=== PATIENT | female | born 1955 | race Caucasian/White ===

== ENCOUNTER 2020-11-11 09:28 | Outpatient (CLI) | payer MEDICARE, SELFPAY ==
[2020-11-11 10:32] LABS: Alanine Aminotransferase 32 U/L (14-59); Albumin Level 3.9 g/dL (3.4-5.0); Alkaline Phosphatase 63 U/L (46-116); Anion Gap 10 mmol/L (8-16); Aspartate Amino Transferase 21 U/L (15-37); Bilirubin,Total 1.1 mg/dL (0.00-1.00); Blood Urea Nitrogen 14 mg/dL (7-18); Calcium 9.3 mg/dL (8.5-10.1); Carbon Dioxide 28 mmol/L (21-32); Chloride 102 mmol/L (98-108); Cholesterol 218 mg/dL (0-200); Estimated Glomerular Filt Rate > 60; Glucose 104 mg/dL (70-99); HDL Direct 95 mg/dL (40-60); LDL Cholesterol Calculated 95 mg/dL (<130); Osmolality Calculated 290 mOsm/kg (285-295); Potassium 3.8 mmol/L (3.5-5.1); Sodium 140 mmol/L (136-145); Triglycerides 138 mg/dL (0-150)
== END 2020-11-11 09:29 | disposition home or self-care (01) ==
LOC: CHSLAB 09:31
PROVIDERS: PCP Family Medicine; Visit Provider Internal Medicine Cardiovascular Disease
DX: E78.5 Hyperlipidemia, unspecified (principal)
CPT/HCPCS: 36415; 80053; 80061

== ENCOUNTER 2021-06-15 09:08 | Outpatient (CLI) | payer MEDICARE, SELFPAY ==
[2021-06-15 10:20] LABS: Alanine Aminotransferase 24 U/L (14-59); Albumin Level 3.9 g/dL (3.4-5.0); Alkaline Phosphatase 64 U/L (46-116); Anion Gap 11 mmol/L (8-16); Aspartate Amino Transferase 17 U/L (15-37); Bilirubin,Total 0.9 mg/dL (0.00-1.00); Blood Urea Nitrogen 11 mg/dL (7-18); Calcium 9.5 mg/dL (8.5-10.1); Carbon Dioxide 28 mmol/L (21-32); Chloride 106 mmol/L (98-108); Cholesterol 218 mg/dL (0-200); Estimated Glomerular Filt Rate 60; Glucose 96 mg/dL (70-99); HDL Direct 95 mg/dL (40-60); LDL Cholesterol Calculated 102 mg/dL (<130); Osmolality Calculated 299 mOsm/kg (285-295); Potassium 4.1 mmol/L (3.5-5.1); Sodium 145 mmol/L (136-145); Total Protein 7.4 g/dL (6.4-8.2); Triglycerides 107 mg/dL (0-150)
== END 2021-06-15 09:09 | disposition home or self-care (01) ==
LOC: CHSLAB 09:10
PROVIDERS: Visit Provider Internal Medicine Cardiovascular Disease
DX: E78.5 Hyperlipidemia, unspecified (principal)
CPT/HCPCS: 36415; 80053; 80061

== ENCOUNTER 2022-05-11 09:36 | Outpatient (CLI) | payer MEDICARE, SELFPAY ==
[2022-05-11 10:15] LABS: Alanine Aminotransferase 21 U/L (14-59); Albumin Level 3.7 g/dL (3.4-5.0); Alkaline Phosphatase 61 U/L (46-116); Anion Gap 8 mmol/L (8-16); Aspartate Amino Transferase 17 U/L (15-37); Bilirubin,Total 1.1 mg/dL (0.00-1.00); Blood Urea Nitrogen 12 mg/dL (7-18); Calcium 9.6 mg/dL (8.5-10.1); Carbon Dioxide 31 mmol/L (21-32); Chloride 100 mmol/L (98-108); Cholesterol 219 mg/dL (0-200); Estimated Glomerular Filt Rate 60; Glucose 101 mg/dL (70-99); HDL Direct 88 mg/dL (40-60); LDL Cholesterol Calculated 107 mg/dL (<130); Osmolality Calculated 287 mOsm/kg (285-295); Potassium 3.5 mmol/L (3.5-5.1); Sodium 139 mmol/L (136-145); Triglycerides 121 mg/dL (0-150)
== END 2022-05-11 09:37 | disposition home or self-care (01) ==
LOC: CHSLAB 09:38
PROVIDERS: PCP Internal Medicine Cardiovascular Disease; Visit Provider Internal Medicine Cardiovascular Disease
DX: E78.5 Hyperlipidemia, unspecified (principal)
CPT/HCPCS: 36415; 80053; 80061

== ENCOUNTER 2022-06-01 13:48 | Outpatient (CLI) | payer MEDICARE, SELFPAY ==
--- NOTE | ~2022-06-01 | MM_ITS ---
EXAMINATION: MM screening [facility] BI w dasha HISTORY: Screening TECHNIQUE: Craniocaudal and mediolateral oblique 3-D tomosynthesis images were obtained and synthetic 2-D images were generated. CAD analysis was submitted and interpreted. COMPARISON: 11/24/2016 BREAST PARENCHYMAL COMPOSITION: Breast composed of scattered areas of fibroglandular density FINDINGS: There is developing asymmetry in the subareolar location of the right breast. There is an e nlarging mass in the upper outer quadrant of the left breast. IMPRESSION: 1. Developing right breast asymmetry and left breast mass. 2. Additional mammographic views and possible breast ultrasound are recommended. BI-RADS Category 0: Incomplete: Needs additional imaging evaluation. Reviewed, dictated and finalized at location A. IMPRESSION: 1. Developing right breast asymmetry and left breast mass. 2. Additional mammographic views and possible breast ultrasound are recommended . BI-RADS Category 0: Incomplete: Needs additional imaging evaluation.
== END 2022-06-01 13:49 | disposition home or self-care (01) ==
LOC: CHSIMG 13:49
PROVIDERS: PCP Nurse Practitioner Family; Visit Provider Nurse Practitioner Family
DX: Z12.31 Encounter for screening mammogram for malignant neoplasm of breast (principal)
CPT/HCPCS: 77063; 77067

== ENCOUNTER 2022-06-08 08:59 | Outpatient (CLI) | payer MEDICARE, SELFPAY ==
--- NOTE | ~2022-06-08 | MMUS_ITS ---
EXAMINATION: MM diagnostic [facility] BI w dasha, US breast LT limited HISTORY: Left breast mass and right breast asymmetry on screening mammogram TECHNIQUE: Additional 3-D tomosynthesis images of the breasts were performed and synthetic 2-D images were generated. CAD analysis was submitted and interpreted. High resolution limited left breast ultr asound was performed. COMPARISON: 06/01/2022, 11/24/2016, 11/23/2009 FINDINGS: MAMMOGRAPHIC FINDINGS: There is a 3.8 cm oval, circumscribed, equal density mass in the anterior third of the outer left kesha ast at the 3:00 location 3 cm from the nipple. There is a return to baseline fibroglandular appearanc e with spot compression of the right breast in the area questioned on screening mammogram. ULTRASOUND: There is a 3.5 cm cyst of the left breast at the 3:00 location 7 cm from the nipple corresponding to the mammographic finding in question. No suspicious cystic or solid mass is identified. IMPRESSION: 1. No mammographic or sonographic evidence of malignancy. 2. Recommend routine screening mammography in one year. BI-RADS Category 2: Benign finding(s). Reviewed, dictated and finalized at location A. IMPRESSION: 1. No mammographic or sonographic evidence of malignancy. 2. Recommend routine screening mammography in one year. BI-RADS Category 2: Benign finding(s).
== END 2022-06-08 09:00 | disposition home or self-care (01) ==
LOC: CHSIMG 09:00
PROVIDERS: PCP Nurse Practitioner Family; Visit Provider Nurse Practitioner Family
DX: N63.0 Unspecified lump in unspecified breast (principal); R92.8 Other abnormal and inconclusive findings on diagnostic imaging of breast
CPT/HCPCS: 76642; 77062; 77066; G0279

== ENCOUNTER 2022-11-24 13:08 | Outpatient (CLI) | payer MEDICARE, SELFPAY ==
--- NOTE | 2022-11-24 13:13 | ECHO_ITS ---
Patient Info Name: Queta Romero Age: 67 years : 1955 Gender: Female Ht: 66 in Wt: 152 lbs BSA: 1.80 m2 HR: 79 bpm BP: 134 / 77 mmHg Heart Rhythm: Sinus Rhythm Technical Quality: Fair Exam Date: 11/24/2022 2:01 PM Exam Location: [facility] Patient Status: Outpatient Admit Date: 11/24/2022 Staff Ordering Physician: Gonzalez Cook DO Hydraulics Engineer: Ludmila Carreon RDCS Attending Provider: Gonzalez Cook DO Referring Physician: Joey JIMENEZ; Exam Type: CA echo doppler color flow Study Info Indications I51.9 - Heart disease, unspecified Complete two-dimensional, color flow and Doppler transthoracic echocardiogram is performed. History/Risk Factors Hypertension: Yes Dyslipidemia: Yes Congenital Heart Disease (CHD): No Peripheral Arterial Disease (PAD): No Myocardial Infarction (UT): No Chronic Lung Disease: No Obesity: Yes Renal Disease: No Coronary Artery Disease (CAD) No Congestive Heart Failure (CHF): No Cardiomyopathy/LV Systolic Dysfunction: No Diabetes Mellitus: No COPD: No Tobacco Use: Former Cerebrovascular Disease: No Family History: Coronary Artery Disease Deep Vein Thrombosis (DVT): None Dialysis: None Frailty Scale (CSHA): 3: Managing Well Cardiac Arrest: No Prior Interventions Pacemaker: No PCI: No CABG: No Valve Surgery: No ICD: No PV Intervention: None Heart Transplant: No Summary 1. Complete two-dimensional, color flow and Doppler transthoracic echocardiogram is performed. 2. Left ventricular chamber dimension is normal. 3. Left ventricular systolic function is normal, estimated at 55-60%. 4. Left ventricular septal wall motion is abnormal with septal motion related to bundle branch block. 5. The left ventricular diastolic function is grade I diastolic dysfunction. 6. E/e' 12 is mildly elevated. 7. There is mild aortic valve sclerosis. 8. No pulmonary hypertension, estimated pulmonary arterial systolic pressure is 24 mmHg. Left Ventricle E/e' 12 is mildly elevated. Left ventricular chamber dimension is normal. Left ventricular systolic function is normal, estimated at 55-60%. Left ventricular septal wall motion is abnormal with septal motion related to bundle branch block. The left ventricular diastolic function is grade I diastolic dysfunction. Right Ventricle Right ventricular systolic function is normal and with normal TAPSE 1.7 cm. Right ventricular chamber dimension is normal. Left Atria Left atrial chamber dimension is normal. Right Atria Right atrial chamber dimension is normal. Aortic Valve The aortic valve is trileaflet. There is mild aortic valve sclerosis. There is no aortic valve stenosis. There is no aortic valve regurgitation. Pulmonic Valve There is no pulmonic regurgitation. Mitral Valve There is no mitral valve stenosis. There is no mitral valve regurgitation. Tricuspid Valve There is no tricuspid valve regurgitation. No pulmonary hypertension, estimated pulmonary arterial systolic pressure is 24 mmHg. Pericardium/Pleural There is no pericardial effusion. Inferior Vena Cava Normal inferior vena cava with >50% collapse upon inspiration consistent with normal right atrial pressure, 5 mmHg. Aorta The aortic root size at the sinus of Valsalva is normal. Left Ventricular Outflow Tract
== END 2022-11-24 13:09 | disposition home or self-care (01) ==
LOC: CHSIMG 13:10
PROVIDERS: PCP Nurse Practitioner Family; Visit Provider Internal Medicine Cardiovascular Disease
DX: I51.9 Heart disease, unspecified (principal); I35.8 Other nonrheumatic aortic valve disorders
CPT/HCPCS: 93306

== ENCOUNTER 2023-05-21 09:15 | Outpatient (CLI) | payer MEDICARE, SELFPAY ==
[2023-05-21 10:33] LABS: Alanine Aminotransferase 24 U/L (14-59); Albumin Level 3.6 g/dL (3.4-5.0); Alkaline Phosphatase 63 U/L (46-116); Anion Gap 10 mmol/L (8-16); Blood Urea Nitrogen 12 mg/dL (7-18); Calcium 9.1 mg/dL (8.5-10.1); Carbon Dioxide 29 mmol/L (21-32); Chloride 104 mmol/L (98-108); Cholesterol 197 mg/dL (0-200); Estimated Glomerular Filt Rate > 60; Glucose 98 mg/dL (70-99); HDL Direct 89 mg/dL (40-60); LDL Cholesterol Calculated 82 mg/dL (<130); Osmolality Calculated 295 mOsm/kg (285-295); Potassium 3.7 mmol/L (3.5-5.1); Sodium 143 mmol/L (136-145); Total Protein 7.4 g/dL (6.4-8.2); Triglycerides 131 mg/dL (0-150)
[2023-05-21 10:52] LABS: Aspartate Amino Transferase 15 U/L (15-37)
== END 2023-05-21 09:16 | disposition home or self-care (01) ==
LOC: CHSLAB 09:17
PROVIDERS: PCP Nurse Practitioner Family; Visit Provider Internal Medicine Cardiovascular Disease
DX: E78.5 Hyperlipidemia, unspecified (principal)
CPT/HCPCS: 36415; 80053; 80061

== ENCOUNTER 2023-07-09 12:44 | Outpatient (CLI) | payer MEDICARE, SELFPAY ==
--- NOTE | ~2023-07-09 | MM_ITS ---
EXAMINATION: MM screening [facility] BI w dasha HISTORY: Screening mammogram TECHNIQUE: Craniocaudal and mediolateral oblique 3-D tomosynthesis images were obtained and synthetic 2-D images were generated. CAD analysis was submitted and interpreted. COMPARISON: 06/08/2022 diagnostic bilateral mammogram and limited left breast ultrasound 05/2022 bilateral screening mammogram BREAST PARENCHYMAL COMPOSITION: FINDINGS: Interval decreased size of circumscribed opacity with halo sign in the outer mid left breas t from 3.5 cm on 05/2022 2 approximately 2.6 cm currently. This was demonstrated to be a cyst on 06/08 examination; FURTHER DECREASED SIZE SINCE THEN IS FURTHER SUPPORT FOR BENIGN DIAGNOSIS. Scattered benign calcifications are again noted bilaterally. . There is no evidence of suspicious mass, calcification, or architectural distortion to suggest yahaira gnancy in either breast. There has been no suspicious interval change. IMPRESSION: 1. Benign findings. No mammographic evidence of malignancy. 2. Recommend routine screening mammography in one year. BI-RADS Category 2: Benign finding(s). Reviewed, dictated and finalized at location A.
== END 2023-07-09 12:45 | disposition home or self-care (01) ==
LOC: CHSIMG 12:46
PROVIDERS: PCP Nurse Practitioner Family; Visit Provider Nurse Practitioner Family
DX: Z12.31 Encounter for screening mammogram for malignant neoplasm of breast (principal)
CPT/HCPCS: 77063; 77067

== ENCOUNTER 2024-04-21 09:40 | Outpatient (CLI) | payer MEDICARE, SELFPAY ==
[2024-04-21 09:52] LABS: Basophils Absolute Auto 0.08 K/mm3 (0.00-0.10); Basophils Percent Auto 0.9 % (0.0-1.0); Eosinophils Absolute Auto 0.11 K/mm3 (0.02-0.50); Eosinophils Percent Auto 1.3 % (1.0-6.0); Hematocrit 39.8 % (35.0-42.0); Hemoglobin 13.7 g/dL (11.7-13.8); Immature Granulocyte Absolute 0.03 K/mm3 (0.00-0.00); Immature Granulocyte Percent A 0.3 % (0.0-0.0); Lymphocytes Absolute Auto 1.57 K/mm3 (1.10-4.50); Lymphocytes Percent Auto 18.3 % (18.0-42.0); Mean Corpuscular HGB Conc 34.4 g/dL (32-36); Mean Corpuscular Hemoglobin 30.6 pg (27.0-31.0); Mean Corpuscular Volume 88.8 fL (78.0-102.0); Mean Platelet Volume 8.9 fl (9.2-11.8); Monocytes Absolute Auto 0.62 K/mm3 (0.10-0.90); Monocytes Percent Auto 7.2 % (2.0-11.0); Neutrophils Absolute Auto 6.19 K/mm3 (1.70-7.20); Platelet Count Result 352 K/mm3 (150-420); Red Blood Count 4.48 M/mm3 (4.20-5.40); Red Cell Distribution Width 12.4 % (11.6-14.4); White Blood Count 8.6 K/mm3 (4.8-10.8)
[2024-04-21 10:38] LABS: Alanine Aminotransferase 21 U/L (14-59); Albumin Level 4.1 g/dL (3.4-5.0); Alkaline Phosphatase 63 U/L (46-116); Anion Gap 10 mmol/L (4-12); Aspartate Amino Transferase 19 U/L (15-37); Bilirubin,Total 1.1 mg/dL (0.00-1.00); Blood Urea Nitrogen 13 mg/dL (7-18); Calcium 9.5 mg/dL (8.5-10.1); Carbon Dioxide 29 mmol/L (21-32); Chloride 100 mmol/L (98-108); Cholesterol 207 mg/dL (0-200); Estimated Glomerular Filt Rate > 60; Glucose 95 mg/dL (70-99); HDL Direct 96 mg/dL (40-60); LDL Cholesterol Calculated 85 mg/dL (<130); Osmolality Calculated 288 mOsm/kg (285-295); Potassium 3.9 mmol/L (3.5-5.1); Sodium 139 mmol/L (136-145); Total Protein 7.2 g/dL (6.4-8.2); Triglycerides 132 mg/dL (0-150)
[2024-04-23 06:28] LABS: Vitamin D 25 Hydroxy 43 ng/mL (30-100)
== END 2024-04-21 09:41 | disposition home or self-care (01) ==
LOC: CHSLAB 09:41
PROVIDERS: PCP Nurse Practitioner Family; Visit Provider Nurse Practitioner Family
DX: E78.5 Hyperlipidemia, unspecified (principal); Z79.899 Other long term (current) drug therapy; I10 Essential (primary) hypertension
CPT/HCPCS: 36415; 80053; 80061; 82306; 85025

== ENCOUNTER 2024-04-24 14:22 | Outpatient (CLI) | payer MEDICARE, SELFPAY ==
--- NOTE | ~2024-04-24 | DEXA_ITS ---
? Bone Density Report? Name:? KELLI CERRATO Patient ID:??? [id number] Age:? 68 Sex:? Female Ethnicity:? White Date of : 1955 Indication: postmenopausal; screening for osteoporosis; height loss; prior fracture; hysterectomy; Referring Provider: Anabelle Malcolm Study: Bone densitometry was performed. Exam Date: April 24, 2024 Accession number: [id number] Bone Density: Region? BMD??? T-score? Z-score?? Classification AP Spine(L2, L3, L4)? 1.269??? 1.7?3.9? Normal Femoral Neck (Left)? 0.764?? -0.8? 1.0? Normal Total Hip (Left)? 0.955??? 0.1? 1.6? Normal Femoral Neck (Right)? 0.851??? 0.0? 1.8? Normal Total Hip (Right)? 0.988??? 0.4? 1.9? Normal Femoral Neck Mean? 0.807?? -0.4? 1.4? Normal Total Hip Mean? 0.972??? 0.2? 1.7? Normal World Health Organization criteria for BMD impression classify patients as: Normal (T-score at or above -1.0), Osteopenia (T-score between -1.0 and -2.5), or Osteoporosis (T-score at or below -2.5). 10-year Fracture Risk: FRAX not reported because: ? All T-scores for Spine Total, Hip Total, Femoral Neck at or above -1.0 Clinical Information Provided by Patient: Has had a low trauma fracture Has used the following medications: HRT (i.e. estrogen/hormone therapy), Vitamin D, Calcium Has the following medical conditions: Hysterectomy Patient maximum height was 67 Menopause Age: 49 No regular weight bearing exercise Does not regularly consume dairy products Drinks caffeinated beverages Onset of menses at age 15 Number of children 2 Impression: The patient has normal bone mass. The patient has risk factors, including: previous fracture. Discussion: BONE DENSITY IS ABOVE THE MINIMUM DESIRABLE LEVEL AT ALL SKELETAL SITES TESTED. This patient?s bone mineral density is above the minimum desirable level (T- score -1.0 or better) at all sites measured. The patient should follow a healthful lifestyle (good nutrition with adequate calcium and vitamin D, and appropriate weight-bearing exercise). Follow-Up: Consider repeating this study in 5 years or sooner if there is some new clinical indication. Reported by: Dr. Troy Adorno on 04/25/2024 10:21:00 AM. JAYDEN
== END 2024-04-24 14:23 | disposition home or self-care (01) ==
LOC: CHSIMG 14:23
PROVIDERS: PCP Nurse Practitioner Family; Visit Provider Nurse Practitioner Family
DX: Z78.0 Asymptomatic menopausal state (principal)
CPT/HCPCS: 77080

== ENCOUNTER 2024-07-01 14:47 | Outpatient (CLI) | payer MEDICARE, SELFPAY ==
[2024-07-01 15:03] LABS: Basophils Absolute Auto 0.02 K/mm3 (0.00-0.10); Basophils Percent Auto 0.2 % (0.0-1.0); Eosinophils Absolute Auto 0.03 K/mm3 (0.02-0.50); Eosinophils Percent Auto 0.3 % (1.0-6.0); Hemoglobin 11.7 g/dL (11.7-13.8); Immature Granulocyte Absolute 0.09 K/mm3 (0.00-0.00); Immature Granulocyte Percent A 0.8 % (0.0-0.0); Lymphocytes Absolute Auto 0.62 K/mm3 (1.10-4.50); Lymphocytes Percent Auto 5.2 % (18.0-42.0); Mean Corpuscular HGB Conc 34.4 g/dL (32-36); Mean Corpuscular Hemoglobin 30.3 pg (27.0-31.0); Mean Corpuscular Volume 88.1 fL (78.0-102.0); Mean Platelet Volume 9.3 fl (9.2-11.8); Monocytes Absolute Auto 0.88 K/mm3 (0.10-0.90); Monocytes Percent Auto 7.4 % (2.0-11.0); Neutrophils Percent Auto 86.1 % (50.0-70.0); Platelet Count Result 298 K/mm3 (150-420); Red Blood Count 3.86 M/mm3 (4.20-5.40); Red Cell Distribution Width 12.6 % (11.6-14.4); White Blood Count 11.8 K/mm3 (4.8-10.8)
[2024-07-01 15:17] LABS: Hemoglobin A1C 5.6 % (<5.7)
[2024-07-01 15:17] LABS: Add Urine Microscopic? YES; Bilirubin Urine Negative (Negative); Blood Urine 2+ (Negative); Color Urine Light Yellow (Yellow); Glucose Urine UA Negative (Negative); Ketones Urine Negative (Negative); Leukocyte Esterase Ur 2+ LEU/UL (Negative); Nitrate Urine Negative (Negative); Protein Urine 1+ (Negative); Urobilinogen Urine 0.2 mg/dL (0.2-1.0)
[2024-07-01 15:29] LABS: Appearance Urine Sl Cloudy (Clear); Bacteria Urine 1+ /hpf; Squamous Epithelial Cell Urine Few /hpf (Few); WBC Urine 16-20 /hpf (0-3)
[2024-07-01 15:46] LABS: Alanine Aminotransferase 23 U/L (14-59); Albumin Level 2.7 g/dL (3.4-5.0); Alkaline Phosphatase 94 U/L (46-116); Anion Gap 10 mmol/L (4-12); Aspartate Amino Transferase 25 U/L (15-37); Bilirubin,Total 0.5 mg/dL (0.00-1.00); Blood Urea Nitrogen 28 mg/dL (7-18); Calcium 8.6 mg/dL (8.5-10.1); Carbon Dioxide 27 mmol/L (21-32); Chloride 95 mmol/L (98-108); Estimated Glomerular Filt Rate 24; Glucose 120 mg/dL (70-99); Lipase 26 U/L (16-77); Osmolality Calculated 280 mOsm/kg (285-295); Potassium 3.4 mmol/L (3.5-5.1); Sodium 132 mmol/L (136-145); Total Protein 6.3 g/dL (6.4-8.2)
[2024-07-01 15:47] LABS: CRP > 25.0 mg/dL (0.0-0.9)
== END 2024-07-01 14:48 | disposition home or self-care (01) ==
LOC: CHSLAB 14:50
PROVIDERS: PCP Nurse Practitioner Family; Visit Provider Nurse Practitioner Family
DX: Z13.1 Encounter for screening for diabetes mellitus (principal); R15.9 Full incontinence of feces; R32 Unspecified urinary incontinence; R11.2 Nausea with vomiting, unspecified; R10.84 Generalized abdominal pain; R82.90 Unspecified abnormal findings in urine
CPT/HCPCS: 36415; 80053; 81001; 83036; 83690; 85025; 86140; 87077; 87086; 87088; 87186

== ENCOUNTER 2024-07-01 17:22 | Observation (INO) | payer MEDICARE, SELFPAY ==
[2024-07-01] VITALS (21 sets, daily range): BP systolic 102–127; BP diastolic 59–71; PULSE 83–108; RESP 16–23; TEMP 36.8; O2SAT 95–98; BMI 26.2
--- NOTE | ~2024-07-01 | CT_ITS ---
EXAMINATION: CT abdomen pelvis wo con DATE: 07/01/2024 20:17 INDICATION: Fever. Fatigue. Weakness. TECHNIQUE: Computed tomography (CT) of the abdomen and pelvis was performed without intravenous contr ast. Automated exposure control and iterative reconstruction technique were employed. The dose-length product was 458.13 mGy-cm. COMPARISON: None. FINDINGS: The visualized portions of the lung bases demonstrate mild atelectasis. No pleural effusion . The heart size is normal. There is a trace pericardial effusion. There are coronary artery calcific ations. The liver, gallbladder, spleen, pancreas, and right adrenal gland are normal. There is a 1.9 cm mass in left adrenal gland measuring low attenuation, consistent with an adenoma. The kidneys are normal. The bladder is distended. There is no urolithiasis. There is diverticulosis of the colon with out evidence of diverticulitis. The appendix is not visualized. There are no pathologically enlarged lymph nodes. There is no free intraperitoneal fluid. There is severe lumbar spondylosis. IMPRESSION: 1. No specific etiology for the patient's symptoms. Reviewed, dictated and finalized at location A.
--- NOTE | 2024-07-01 17:35 | ECG_ITS ---
Test Date: 2024-07-01 20:26:37 Measurements Intervals [place] Rate: 90 P: 70 ID: [id number] QRS: -53 QRSD: 142 T: 62 QT: 401 QTc: 493 Interpretive Statements SINUS RHYTHM LEFT AXIS DEVIATION LEFT BUNDLE BRANCH BLOCK BASELINE ARTIFACT- I, II, III, AVR, AVL, AVF ABNORMAL ECG No previous ECG available for comparison Electronically Signed On 07-02-2024 06:37:13 CDT by Gonzalez Cook D.O.
--- NOTE | 2024-07-01 17:37 | ED.RECABL ---
HPI - Recheck/Abnormal Lab/Rx General Chief Complaint: Recheck/Abnormal Lab/Rx Stated Complaint: ALTERED LABS Time Seen by Provider: 07/01/24 17:32 Source: patient and family Mode of arrival: ambulatory Limitations: no limitations History of Present Illness HPI narrative: Patient is a 68-year-old female who has been having a fever for 3 days. She also had some earlier abdominal pain that resolved at this time. She is here per her primary doctor sending her due to elevated creatinine and UTI. Initial visit (ago): day(s) (/Sent by the primary doctor today) Initial visit for: other ( abnormal labs with the primary doctor done here at the hospital for her fever) Description of abnormal result: elevated creatinine and BUN with a UTI Symptoms since prior visit: improved ( no fever today) Associated symptoms: fever Related Data Home Medications Medication Instructions Recorded Confirmed aspirin 81 mg tablet,delayed 81 mg PO DAILY 11/06/19 07/01/24 release (Adult Low Dose Aspirin) Allergies Allergy/AdvReac Type Severity Reaction Status Date / Time No Known Allergies Allergy Unknown Verified 07/01/24 14:05 Review of Systems Review of Systems: All systems reviewed & are unremarkable except as noted in HPI and below Constitutional: Constitutional: Reports no additional constitutional complaints Eyes: Eyes: Reports no additional eye complaints ENT: Reports system reviewed and no additional complaints, except as documented Cardiovascular: Cardiovascular: Reports no additional cardiovascular complaints Respiratory: Respiratory: Reports no additional respiratory complaints Gastrointestinal: Gastrointestinal: Reports no additional gastrointestinal complaints Genitourinary: Genitourinary: Reports no additional female genitourinary complaints Musculoskeletal: Musculoskeletal: Reports no additional musculoskeletal complaints Integumentary/Breasts: Skin/Breast: Reports system reviewed and no additional complaints, except as docu Neurologic: Reports system reviewed and no additional complaints, except as documented Psychiatric: Psychiatric: Reports no additional psychiatric complaints Endocrine: Endocrine: Reports no additional endocrine complaints Hematologic/Lymphatic: Hematologic/Lymphatic: Reports no additional hematologic/lymphatic complaints Allergic/Immunologic: Allergic/Immunologic: Reports no additional allergic/immunologic complaints [facility] Past Medical History Medical History (Updated 07/01/24 @ 22:06 by Ba Trammell MD) Chest pain in adult Essential hypertension Hypercholesterolemia (12/18/11) Hyperlipidemia (11/10/16) LBBB (left bundle branch block) Surgical History Surgical History History of hysterectomy History of lumbar laminectomy 2012 History of tubal ligation Family History Family History Father Family history of malignant neoplasm Mother Family history of malignant neoplasm Social History Social History Smoking status: Former smoker Alcohol intake: current Lack of Transportation: No Lack of Food: Never True Current Housing: I Have Housing Concerned About Future Housing: No Difficulty Paying Gas/Electric Bills: No Difficulty Paying for Meds: No Currently Unemployed: No Education: High School Diploma/GED Difficulty w/ Childcare or Family Care: No Exam Const: General: ill appearing Nutritional Appearance: well nourished Orientation/consciousness: patient oriented x3 HENMT: Head: normal to inspection Ears: external ears normal Face/Nose/Sinus: Normal external nose present Eyes: Conjunctivae: conjunctivae normal Pupils: Equal, round and reactive pupils present EOM: EOMs intact bilaterally Neck: Neck: normal visual inspection Chest: Chest palpation & in
[2024-07-01 17:49] LABS: Basophils Absolute Auto 0.02 K/mm3 (0.00-0.10); Basophils Percent Auto 0.2 % (0.0-1.0); Eosinophils Absolute Auto 0.01 K/mm3 (0.02-0.50); Eosinophils Percent Auto 0.1 % (1.0-6.0); Hematocrit 32.5 % (35.0-42.0); Hemoglobin 11.2 g/dL (11.7-13.8); Immature Granulocyte Absolute 0.08 K/mm3 (0.00-0.00); Immature Granulocyte Percent A 0.7 % (0.0-0.0); Lymphocytes Absolute Auto 0.37 K/mm3 (1.10-4.50); Lymphocytes Percent Auto 3.2 % (18.0-42.0); Mean Corpuscular HGB Conc 34.5 g/dL (32-36); Mean Corpuscular Hemoglobin 30.2 pg (27.0-31.0); Mean Corpuscular Volume 87.6 fL (78.0-102.0); Mean Platelet Volume 9.3 fl (9.2-11.8); Monocytes Absolute Auto 1.06 K/mm3 (0.10-0.90); Monocytes Percent Auto 9.2 % (2.0-11.0); Neutrophils Percent Auto 86.6 % (50.0-70.0); Platelet Count Result 281 K/mm3 (150-420); Red Blood Count 3.71 M/mm3 (4.20-5.40); Red Cell Distribution Width 12.7 % (11.6-14.4); White Blood Count 11.5 K/mm3 (4.8-10.8)
[2024-07-01] MEDS: SODIUM CHLORIDE 0.9% IV 1,000 ML 999 ML IV CONT ×2 (17:53→19:53)
--- NOTE | 2024-07-01 18:56 | PC.NURSE ---
PT IS RESTING ON STRETCHER AWAITING WITH AT BEDSIDE. PT IS AWAITING LAB RESULTS, CHEMISTRY MACHINE IS DOWN, LABS SENT TO EARLY TO BE ANALYZED. NAD NOTED. VSS. WARM BLANKETS PROVIDED. WILL CONTINUE TO MONITOR.
[2024-07-01] MEDS: PIPERACILLN/TAZ 3.375GM/NS50ML 3.375 GM/50 ML BAG IVPB (20:58)
[2024-07-01 21:05] LABS: Alanine Aminotransferase 20 U/L (6-35); Albumin Level 3.5 g/dL (3.5-5.1); Alkaline Phosphatase 91 U/L (38-126); Anion Gap 13 mmol/L (4-12); Aspartate Amino Transferase 33 U/L (14-36); Bilirubin,Total 0.6 mg/dL (0.2-1.3); Blood Urea Nitrogen 29 mg/dL (7-17); Calcium 8.2 mg/dL (8.4-10.2); Carbon Dioxide 22 mmol/L (22-30); Chloride 95 mmol/L (98-107); Estimated CRCL calculation 22 ml/min; Estimated Glomerular Filt Rate 23; Glucose 152 mg/dL (65-110); Osmolality Calculated 278 mOsm/kg (285-295); Sodium 130 mmol/L (137-145)
--- NOTE | 2024-07-01 21:14 | PC.NURSE ---
1900 pt report from TESHA fontana. resumed patient care. pt resting per cot on left side. in room with pt. pt denies any needs. denies pain
[2024-07-01 21:15] LABS: Add Urine Microscopic? YES; Appearance Urine Cloudy (Clear); Bilirubin Urine Negative (Negative); Blood Urine 2+ (Negative); Color Urine Light Yellow (Yellow); Glucose Urine UA Negative (Negative); Ketones Urine Negative (Negative); Leukocyte Esterase Ur 2+ (Negative); Nitrate Urine Positive (Negative); Protein Urine 1+ (Negative); Urobilinogen Urine 0.2 mg/dL (0.2-1.0)
[2024-07-01 21:19] LABS: Bacteria Urine 2+ /hpf; Squamous Epithelial Cell Urine Rare /hpf (Few); WBC Urine 51-75 /hpf (0-3)
--- NOTE | 2024-07-01 22:32 | ADMGEN ---
This patient, Queta Romero, was admitted to 2nd Floor Room 207-1. Patient oriented to hospital policies and general routines including ID bracelet, bed and alarms, visiting hours, pain management, procedures, bathroom and other care routines, personal items, smoking policy, room service/diet, and visiting hours. Information on how to activate the Rapid Response Team has been discussed. Patient are encouraged to report perceived risks to care and to ask questions if they do not understand what they are told or what they should do.
[2024-07-01] MEDS: POTASSIUM CHLORIDE 20 MEQ ER TABLET PO (23:16)
[2024-07-01] MEDS: SODIUM CHLORIDE 0.9% IV 1,000 ML 150 ML IV CONT (23:17)
[2024-07-02] VITALS (9 sets, daily range): BP systolic 125–132; BP diastolic 60–80; PULSE 79–107; RESP 14–17; TEMP 36–37.3; O2SAT 99–100
[2024-07-02] MEDS: PIPERACILLIN/TAZ 2.25G/NS 50ML 2.25 GM/50 ML BAG IVPB (03:58)
[2024-07-02 05:26] LABS: Basophils Absolute Auto 0.03 K/mm3 (0.00-0.10); Basophils Percent Auto 0.2 % (0.0-1.0); Eosinophils Absolute Auto 0.01 K/mm3 (0.02-0.50); Eosinophils Percent Auto 0.1 % (1.0-6.0); Hematocrit 32.4 % (35.0-42.0); Hemoglobin 10.9 g/dL (11.7-13.8); Immature Granulocyte Absolute 0.06 K/mm3 (0.00-0.00); Immature Granulocyte Percent A 0.5 % (0.0-0.0); Lymphocytes Percent Auto 6.6 % (18.0-42.0); Mean Corpuscular HGB Conc 33.6 g/dL (32-36); Mean Corpuscular Hemoglobin 29.5 pg (27.0-31.0); Mean Corpuscular Volume 87.6 fL (78.0-102.0); Mean Platelet Volume 9.4 fl (9.2-11.8); Monocytes Absolute Auto 1.33 K/mm3 (0.10-0.90); Neutrophils Absolute Auto 9.89 K/mm3 (1.70-7.20); Neutrophils Percent Auto 81.6 % (50.0-70.0); Platelet Count Result 321 K/mm3 (150-420); Red Cell Distribution Width 12.7 % (11.6-14.4); White Blood Count 12.1 K/mm3 (4.8-10.8)
[2024-07-02] MEDS: ONDANSETRON INJ 4 MG/2 ML VIAL IV PUSH ×2 (05:29→20:40)
[2024-07-02] MEDS: SODIUM CHLORIDE 0.9% IV 1,000 ML 150 ML IV CONT ×3 (05:29→19:33)
--- NOTE | 2024-07-02 07:10 | PC.NURSE ---
New IV site started to the left wrist with a #22 gauge catheter. Previous IV site removed.
--- NOTE | 2024-07-02 08:40 | PM.IMHP ---
H&P: HPI History of Present Illness Date/Time: 07/02/24 08:40 Chief Complaint: Acute UTI Narrative: This is a 68 year old female with a significant past medical history of hyperlipidemia, hypertension who presented with abnormal labs from her primary care doctor's office. Patient originally presented to her PCP with a 3 day history of fever and abdominal pain. She states that she has been having urinary frequency, nausea, and vomiting prior to arrival to the hospital. She denies any chills, abdominal pain, diarrhea, chest pain, shortness a breath, headache. Her initial labs shown a WBC 11.5, Hgb 11.2, Na+ 130, Potassium 3.0, Chloride 95, Creatinine 2.10, eGFR 23. UA shown cloudy appearance, 1+ protein, 2+ urine blood, positive nitrates, 2+ leukocytes, 3-5 urine RBC, 51-75 urine WBC, 2+ bacteria. Work up in the hospital included a CT of the abdomen/pelvis which was negative. Urine and blood cultures were obtained and pending. Patient was given 2L of NS, Zosyn, and potassium 20 meq while in the ER. Review of Systems Review of Systems: All systems reviewed & are unremarkable except as noted in HPI and below Constitutional: Constitutional: Reports as per HPI and Reports no additional constitutional complaints Eyes: Eyes: Reports as per HPI and Reports no additional eye complaints ENT: Reports system reviewed and no additional complaints, except as documented and Reports as per HPI Cardiovascular: Cardiovascular: Reports as per HPI and Reports no additional cardiovascular complaints Respiratory: Respiratory: Reports as per HPI and Reports no additional respiratory complaints Gastrointestinal: Gastrointestinal: Reports as per HPI and Reports no additional gastrointestinal complaints Genitourinary: Genitourinary: Reports no additional female genitourinary complaints and Reports as per HPI Musculoskeletal: Musculoskeletal: Reports no additional musculoskeletal complaints and Reports as per HPI Integumentary/Breasts: Skin/Breast: Reports system reviewed and no additional complaints, except as docu and Reports as per HPI Neurologic: Reports system reviewed and no additional complaints, except as documented and Reports as per HPI Psychiatric: Psychiatric: Reports no additional psychiatric complaints and Reports as per HPI [facility] Past Medical History Medical History Chest pain in adult Essential hypertension Hypercholesterolemia (12/18/11) Hyperlipidemia (11/10/16) LBBB (left bundle branch block) Surgical History Surgical History History of hysterectomy History of lumbar laminectomy 2011 History of tubal ligation Family History Family History Father Family history of malignant neoplasm Mother Family history of malignant neoplasm Social History Social History Smoking packs per day: 2 Smoking cigarettes per day: 40.0 Years smoked: 35 Smoking pack-years: 70.00 Smoking status: Former smoker Tobacco type: cigarettes Smoking end date: 06/29/04 Alcohol intake: current Drinks per week: 6 Substance use: never Do You Feel Safe in your Home?: Yes Lack of Transportation: No Lack of Food: Never True Current Housing: I Have Housing Concerned About Future Housing: No Difficulty Paying Gas/Electric Bills: No Difficulty Paying for Meds: No Currently Unemployed: No Education: High School Diploma/GED Difficulty w/ Childcare or Family Care: No Spiritual care concerns: No Meds Home Medications and Allergies Home Medications Medication Instructions Recorded Confirmed Type aspirin 81 mg tablet,delayed 81 mg PO DAILY 11/06/19 07/02/24 History release (Adult Low Dose Aspirin) atorvastatin 40 mg tablet See Rx Instructions .Route 01/24/24 07/02/24 [place]
[2024-07-02] MEDS: ENOXAPARIN 30 MG/0.3 ML SYRINGE SUB-Q (09:05)
[2024-07-02 10:01] LABS: Alanine Aminotransferase 21 U/L (6-35); Albumin Level 3.4 g/dL (3.5-5.1); Alkaline Phosphatase 86 U/L (38-126); Anion Gap 14 mmol/L (4-12); Aspartate Amino Transferase 40 U/L (14-36); Bilirubin,Total 0.5 mg/dL (0.2-1.3); Blood Urea Nitrogen 21 mg/dL (7-17); Carbon Dioxide 19 mmol/L (22-30); Chloride 103 mmol/L (98-107); Estimated CRCL calculation 30 ml/min; Estimated Glomerular Filt Rate 34; Glucose 109 mg/dL (65-110); Magnesium 1.8 mg/dL (1.6-2.3); Osmolality Calculated 286 mOsm/kg (285-295); Potassium 3.1 mmol/L (3.4-5.0); Sodium 136 mmol/L (137-145)
[2024-07-02] MEDS: METOPROLOL TARTRATE 25 MG TABLET PO ×2 (12:00→20:39)
[2024-07-02] MEDS: LOSARTAN POTASSIUM 50 MG TABLET 100 MG PO (12:00)
[2024-07-02] MEDS: ASPIRIN 81 MG ENTERIC TABLET PO (12:00)
[2024-07-02] MEDS: MELATONIN 5 MG TABLET 10 MG PO (20:39)
--- NOTE | 2024-07-02 20:50 | PC.NURSE ---
Assisted pt to bedside commode with SBA, noted to be incontinent of bowel and bladder, pt states, I guess I was sleeping too hard .
[2024-07-03] VITALS: PULSE 80; RESP 17; TEMP 36.6; O2SAT 100
--- NOTE | 2024-07-03 03:06 | PC.NURSE ---
Patient noted to have multiple episodes of loose stools, both continent and incontinent. Will update MENTAL HEALTH DIRECTOR in AM d/t non-urgent nature of issue. Patient may need probiotic and or C-Diff screening.
[2024-07-03] MEDS: SODIUM CHLORIDE 0.9% IV 1,000 ML 150 ML IV CONT (03:08)
[2024-07-03 04:00] VITALS: PULSE 97; RESP 16; TEMP 36.4; O2SAT 99
[2024-07-03 08:00] VITALS: BP 125/80; PULSE 107; PULSE 94; RESP 20; TEMP 36.7; O2SAT 97
--- NOTE | 2024-07-03 08:17 | PM.DS ---
DS: Admitting Diagnosis Discharge Date 07/03/24 Admitting Diagnosis Acute UTI Acute kidney failure Dehydration Hyperlipidemia Essential hypertension DS: Discharge Diagnosis Discharge Diagnosis (1) Acute UTI: Code(s): N39.0 - Urinary tract infection, site not specified Status: Acute (2) GYPSY (acute kidney injury): Code(s): N17.9 - Acute kidney failure, unspecified Status: Acute (3) Acute dehydration: Code(s): E86.0 - Dehydration Status: Acute (4) Hyperlipidemia: Onset Date: 11/10/16 Code(s): E78.5 - Hyperlipidemia, unspecified Status: Chronic (5) Essential hypertension: Code(s): I10 - Essential (primary) hypertension Status: Chronic DS: Summary Hospital Course Reason for hospitalization: Acute UTI Acute kidney failure Dehydration Hyperlipidemia Essential hypertension Hospital Course: This is a 68 year old female with a significant past medical history of hyperlipidemia, hypertension who presented with abnormal labs from her primary care doctor's office. Patient originally presented to her PCP with a 3 day history of fever and abdominal pain. She states that she has been having urinary frequency, nausea, and vomiting prior to arrival to the hospital. She denies any chills, abdominal pain, diarrhea, chest pain, shortness a breath, headache. Her initial labs shown a WBC 11.5, Hgb 11.2, Na+ 130, Potassium 3.0, Chloride 95, Creatinine 2.10, eGFR 23. UA shown cloudy appearance, 1+ protein, 2+ urine blood, positive nitrates, 2+ leukocytes, 3-5 urine RBC, 51-75 urine WBC, 2+ bacteria. Work up in the hospital included a CT of the abdomen/pelvis which was negative. Urine and blood cultures were obtained and pending. Patient was given 2L of NS, Zosyn, and potassium 20 meq while in the ER. Urine culture resulted with E coli on preliminary read, blood cultures showing gram negative bacilli isolated on preliminary read. WBC count is down to 11.4 today and patient is stable for discharge home today. She will be started on Cefdinir and will need to follow up with her primary care doctor in 1 week after completing her full course of antibiotics. Final diagnosis: Acute UTI, Acute kidney injury, Bacteremia Status at Discharge Cognitive/behavioral status at discharge: alert and oriented x3 Functional status at discharge: independent ambulation Overall status at discharge: patient is progressing back to baseline Time Spent with Patient Time attestation: Total time spent providing and/or coordinating discharge services: Time spent: Greater than 30 minutes Exam Narrative: General: In no acute distress Cardiac: Normal S1 and S2. murmur noted, no gallops or friction rubs, peripheral pulses intact. Respiratory: Lungs clear to auscultation, no adventitious lung sounds , currently on room air Gastrointestinal: soft, non-distended, non-tender, normoactive bowel sounds. : voiding without difficulty. Neuro: Alert and oriented x4 DS: Data Data Completed and Pending Completed studies during hospitalization: Abdomen/Pelvis CT Pending studies at discharge: Blood and urine cultures Labs on day of discharge: Labs from last 24 hours 07/02/24 05:21 Sodium 136 L Potassium 3.1 L Chloride 103 Carbon Dioxide 19 L Anion Gap 14 H BUN 21 H Creatinine 1.50 H Estim Creat Clear Calc 30 Estimated GFR 34 L Glucose 109 Calculated Osmolality 286 Calcium 8.0 L Magnesium 1.8 Total Bilirubin 0.5 AST 40 H ALT 21 Alkaline Phosphatase 86 Total Protein 7.0 Albumin 3.4 L Preliminary micro results at discharge 07/01/24 19:44 Blood Culture - Preliminary Blood Gram negative bacilli isolated 07/01/24 19:44 Blood Culture - Preliminary Blood Gram negative bacilli isolated Procedures/Treatments: None Discharge Plan Discharge Attending physician on discharge: Dexter Gutiérrez Consulting providers: [facility]
[2024-07-03 08:25] LABS: Hematocrit 29.8 % (35.0-42.0); Mean Corpuscular HGB Conc 33.6 g/dL (32-36); Mean Corpuscular Volume 89.5 fL (78.0-102.0); Platelet Count Result 314 K/mm3 (150-420); Red Blood Count 3.33 M/mm3 (4.20-5.40); Red Cell Distribution Width 13.2 % (11.6-14.4); White Blood Count 11.4 K/mm3 (4.8-10.8)
[2024-07-03 09:19] LABS: Alanine Aminotransferase 37 U/L (6-35); Albumin Level 3.1 g/dL (3.5-5.1); Alkaline Phosphatase 82 U/L (38-126); Anion Gap 12 mmol/L (4-12); Aspartate Amino Transferase 62 U/L (14-36); Bilirubin,Total 0.4 mg/dL (0.2-1.3); Blood Urea Nitrogen 14 mg/dL (7-17); Calcium 7.9 mg/dL (8.4-10.2); Carbon Dioxide 20 mmol/L (22-30); Chloride 105 mmol/L (98-107); Estimated CRCL calculation 44 ml/min; Estimated Glomerular Filt Rate 55; Glucose 94 mg/dL (65-110); Osmolality Calculated 284 mOsm/kg (285-295); Potassium 2.9 mmol/L (3.4-5.0); Sodium 137 mmol/L (137-145)
[2024-07-03] MEDS: cefTRIAXone 2 GM/NS 100 ML 2 GM/100 ML BAG IVPB (09:20)
[2024-07-03 09:21] VITALS: PULSE 107
[2024-07-03] MEDS: ENOXAPARIN 30 MG/0.3 ML SYRINGE SUB-Q (09:21)
[2024-07-03] MEDS: METOPROLOL TARTRATE 25 MG TABLET PO (09:21)
[2024-07-03] MEDS: ACETAMINOPHEN 325 MG TABLET 650 MG PO (09:21)
[2024-07-03] MEDS: LOSARTAN POTASSIUM 50 MG TABLET 100 MG PO (09:22)
[2024-07-03] MEDS: ASPIRIN 81 MG ENTERIC TABLET PO (09:22)
[2024-07-03] MEDS: POTASSIUM CHLORIDE 20 MEQ ER TABLET 40 MEQ PO (10:15)
[2024-07-03] MEDS: ATORVASTATIN 40 MG TABLET PO (11:52)
[2024-07-03 12:00] VITALS: BP 122/76; PULSE 96; RESP 20; TEMP 36.7; O2SAT 97
--- NOTE | 2024-07-10 09:04 | PC.NURSE ---
discharge call back complete, doing well, no questions regarding care or dc instructions
== END 2024-07-03 12:15 | disposition home or self-care (01) ==
LOC: CHSED 21:58 → CHS2ND 22:06
PROVIDERS: Nurse Practitioner Acute Care; Admitting Provider Internal Medicine; Emergency Provider Emergency Medicine; PCP Nurse Practitioner Family; Visit Provider Internal Medicine
DX: N17.9 Acute kidney failure, unspecified (principal); N39.0 Urinary tract infection, site not specified; B96.20 Unspecified Escherichia coli [E. coli] as the cause of diseases classified elsewhere; E86.0 Dehydration; I10 Essential (primary) hypertension; E78.5 Hyperlipidemia, unspecified; I44.7 Left bundle-branch block, unspecified; Z87.891 Personal history of nicotine dependence; Z79.82 Long term (current) use of aspirin
CPT/HCPCS: 36415; 74176; 80053; 81001; 83605; 83735; 84100; 85025; 85027; 87040; 87147; 87186; 93005; 96361; 96365; 96366; 96367; 96372; 96375; 96376; 99285; A9270; G0378; J0696; J1650; J2405; J2543; J7030

== ENCOUNTER 2024-07-09 11:31 | Outpatient (CLI) | payer MEDICARE, SELFPAY ==
[2024-07-09 11:43] LABS: Basophils Absolute Auto 0.05 K/mm3 (0.00-0.10); Basophils Percent Auto 0.4 % (0.0-1.0); Eosinophils Absolute Auto 0.09 K/mm3 (0.02-0.50); Eosinophils Percent Auto 0.6 % (1.0-6.0); Hematocrit 31.9 % (35.0-42.0); Hemoglobin 10.5 g/dL (11.7-13.8); Immature Granulocyte Percent A 2.1 % (0.0-0.0); Immature Platelet Fraction Pct 0.7 % (1.0-7.0); Lymphocytes Absolute Auto 1.86 K/mm3 (1.10-4.50); Lymphocytes Percent Auto 13.1 % (18.0-42.0); Mean Corpuscular HGB Conc 32.9 g/dL (32-36); Mean Corpuscular Hemoglobin 29.6 pg (27.0-31.0); Mean Corpuscular Volume 89.9 fL (78.0-102.0); Mean Platelet Volume 8.4 fl (9.2-11.8); Monocytes Absolute Auto 0.79 K/mm3 (0.10-0.90); Monocytes Percent Auto 5.5 % (2.0-11.0); Neutrophils Absolute Auto 11.16 K/mm3 (1.70-7.20); Neutrophils Percent Auto 78.3 % (50.0-70.0); Platelet Count Result 716 K/mm3 (150-420); Red Blood Count 3.55 M/mm3 (4.20-5.40); Red Cell Distribution Width 13.4 % (11.6-14.4); White Blood Count 14.3 K/mm3 (4.8-10.8)
[2024-07-09 13:25] LABS: Alanine Aminotransferase 80 U/L (14-59); Albumin Level 2.9 g/dL (3.4-5.0); Alkaline Phosphatase 80 U/L (46-116); Anion Gap 9 mmol/L (4-12); Aspartate Amino Transferase 61 U/L (15-37); Bilirubin,Total 0.4 mg/dL (0.00-1.00); Blood Urea Nitrogen 8 mg/dL (7-18); Calcium 8.8 mg/dL (8.5-10.1); Carbon Dioxide 29 mmol/L (21-32); Chloride 107 mmol/L (98-108); Estimated Glomerular Filt Rate 54; Glucose 99 mg/dL (70-99); Osmolality Calculated 298 mOsm/kg (285-295); Sodium 145 mmol/L (136-145); Total Protein 6.4 g/dL (6.4-8.2)
== END 2024-07-09 11:32 | disposition home or self-care (01) ==
LOC: CHSLAB 11:33
PROVIDERS: PCP Nurse Practitioner Family; Visit Provider Nurse Practitioner Family
DX: N17.9 Acute kidney failure, unspecified (principal); I10 Essential (primary) hypertension
CPT/HCPCS: 36415; 80053; 85025; 85055

== ENCOUNTER 2024-07-24 14:01 | Outpatient (NON) | payer MEDICARE, SELFPAY ==
[2024-07-24 14:22] LABS: Add Urine Microscopic? YES; Appearance Urine Sl Cloudy (Clear); Bilirubin Urine Negative (Negative); Blood Urine Trace-intact (Negative); Color Urine Light Yellow (Yellow); Glucose Urine UA Negative (Negative); Ketones Urine Negative (Negative); Leukocyte Esterase Ur 3+ LEU/UL (Negative); Nitrate Urine Negative (Negative); Protein Urine Negative (Negative); Specific Grav Ur <= 1.005 (1.010-1.020); Urobilinogen Urine 0.2 mg/dL (0.2-1.0)
[2024-07-24 14:26] LABS: RBC Urine None seen /hpf (0-2); WBC Urine 51-75 /hpf (0-3)
[2024-07-24 14:27] LABS: Bacteria Urine 1+ /hpf; Squamous Epithelial Cell Urine Rare /hpf (Few)
== END 2024-07-24 14:02 | disposition home or self-care (01) ==
PROVIDERS: PCP Nurse Practitioner Family; Visit Provider Nurse Practitioner Family
DX: R30.0 Dysuria (principal); Z87.898 Personal history of other specified conditions
CPT/HCPCS: 81001; 87077; 87086; 87088; 87186

== ENCOUNTER 2024-08-15 15:50 | Outpatient (NON) | payer MEDICARE, SELFPAY ==
[2024-08-15 15:59] LABS: Add Urine Microscopic? NO; Appearance Urine Clear (Clear); Bilirubin Urine Negative (Negative); Blood Urine Negative (Negative); Color Urine Light Yellow (Yellow); Glucose Urine UA Negative (Negative); Ketones Urine Negative (Negative); Leukocyte Esterase Ur Negative (Negative); Nitrate Urine Negative (Negative); Protein Urine Negative (Negative); Urobilinogen Urine 0.2 mg/dL (0.2-1.0); pH Urine 5.5 (5.0-8.0)
== END 2024-08-15 15:51 | disposition home or self-care (01) ==
LOC: CHSLAB 15:51
PROVIDERS: Visit Provider Family Medicine
DX: N39.0 Urinary tract infection, site not specified (principal)
CPT/HCPCS: 81003

== ENCOUNTER 2025-04-13 10:43 | Outpatient (CLI) | payer MEDICARE, SELFPAY ==
[2025-04-13 11:19] LABS: Basophils Absolute Auto 0.03 K/mm3 (0.00-0.10); Basophils Percent Auto 0.3 % (0.0-1.0); Eosinophils Absolute Auto 0.12 K/mm3 (0.02-0.50); Eosinophils Percent Auto 1.3 % (1.0-6.0); Hemoglobin 12.4 g/dL (11.7-13.8); Immature Granulocyte Absolute 0.02 K/mm3 (0.00-0.00); Immature Granulocyte Percent A 0.2 % (0.0-0.0); Lymphocytes Percent Auto 17.5 % (18.0-42.0); Mean Corpuscular HGB Conc 32.6 g/dL (32-36); Mean Corpuscular Hemoglobin 28.8 pg (27.0-31.0); Mean Corpuscular Volume 88.4 fL (78.0-102.0); Mean Platelet Volume 9.3 fl (9.2-11.8); Monocytes Absolute Auto 0.47 K/mm3 (0.10-0.90); Monocytes Percent Auto 5.1 % (2.0-11.0); Neutrophils Percent Auto 75.6 % (50.0-70.0); Platelet Count Result 356 K/mm3 (150-420); Red Cell Distribution Width 12.3 % (11.6-14.4); White Blood Count 9.1 K/mm3 (4.8-10.8)
[2025-04-13 11:20] LABS: Add Urine Microscopic? YES; Appearance Urine Clear (Clear); Bilirubin Urine Negative (Negative); Blood Urine Trace-intact (Negative); Color Urine Light Yellow (Yellow); Glucose Urine UA Negative (Negative); Ketones Urine Negative (Negative); Leukocyte Esterase Ur Trace LEU/UL (Negative); Nitrate Urine Negative (Negative); Protein Urine Negative (Negative); Specific Grav Ur <= 1.005 (1.010-1.020); Urobilinogen Urine 0.2 mg/dL (0.2-1.0)
[2025-04-13 11:23] LABS: Bacteria Urine Rare /hpf; RBC Urine None seen /hpf (0-2); Squamous Epithelial Cell Urine Rare /hpf (Few); WBC Urine 0-3 /hpf (0-3)
[2025-04-13 12:14] LABS: Alanine Aminotransferase 16 U/L (6-35); Albumin Level 4.1 g/dL (3.5-5.1); Alkaline Phosphatase 68 U/L (38-126); Anion Gap 7 mmol/L (4-12); Aspartate Amino Transferase 27 U/L (14-36); Bilirubin,Total 1.1 mg/dL (0.2-1.3); Blood Urea Nitrogen 11 mg/dL (7-17); Calcium 9.1 mg/dL (8.4-10.2); Carbon Dioxide 25 mmol/L (22-30); Chloride 106 mmol/L (98-107); Cholesterol 189 mg/dL (0-200); Estimated Glomerular Filt Rate > 60; Glucose 98 mg/dL (65-110); HDL Direct 67 mg/dL; Iron 85 ug/dL (37-170); LDL Cholesterol Calculated 98 mg/dL (<130); Osmolality Calculated 285 mOsm/kg (285-295); Potassium 4.3 mmol/L (3.4-5.0); Sodium 138 mmol/L (137-145); Total Protein 6.9 g/dL (6.3-8.2); Triglycerides 119 mg/dL (<150)
[2025-04-13 12:31] LABS: Free T4 Free Thyroxine 1.31 ng/dL (0.78-2.19); Vitamin D 25 Hydroxy 55.4 ng/mL
[2025-04-14 16:39] LABS: Total Triiodothyronine (T3) 87 ng/dL (76-181)
== END 2025-04-13 10:44 | disposition home or self-care (01) ==
LOC: CHSLAB 10:44
PROVIDERS: PCP Nurse Practitioner Family; Visit Provider Nurse Practitioner Family
DX: I10 Essential (primary) hypertension (principal); Z13.6 Encounter for screening for cardiovascular disorders; E78.5 Hyperlipidemia, unspecified; Z79.899 Other long term (current) drug therapy; R53.83 Other fatigue; E03.9 Hypothyroidism, unspecified; E53.8 Deficiency of other specified B group vitamins; D64.9 Anemia, unspecified; R79.89 Other specified abnormal findings of blood chemistry; R10.9 Unspecified abdominal pain
CPT/HCPCS: 36415; 80053; 80061; 81001; 82306; 82607; 83540; 84439; 84443; 84480; 85025